=== PATIENT | female | born 1995 | race Caucasian/White ===

== ENCOUNTER 2018-04-29 22:11 | Emergency (ER) | payer OTHER, SELFPAY ==
[2018-04-29 22:17] VITALS: BP 136/87; PULSE 118; RESP 18; TEMP 37.1; O2SAT 97
--- NOTE | 2018-04-29 22:42 | ED.GENADUL ---
Disposition Clinical Impression: Left arm cellulitis Disposition: HOME Condition: Good Instructions: Cephalexin (By mouth), Cellulitis (ED) Additional Instructions: This does appear to be an infection related to your tattoo. We will start antibiotic. Please get the prescription filled in the morning before you go back to [place]. Follow up with primary care at the end of the week if it does not seem to be getting better. Return to ED if you develop high fevers, chills, increasing redness or pain. Prescriptions: Cephalexin [Keflex] 500 mg PO Q8H #20 cap Referrals: Primary Care Provider [Outside] Medical Decision Making - Medical Decision Making Patient does appear to have evidence of a cellulitis related to tattoo placement 2 days ago. She is not febrile and she does not look toxic. She otherwise feels well. Initial heart rate elevated but she is morbidly obese and probably fairly deconditioned. Heart rate came down with rest. Patient will be started on Keflex and is given her first dose here. She is returning to [place] tomorrow and is instructed to get the prescription filled here prior to leaving. Follow-up with her doctor back home if not getting better. Return to ED if worsening pain, swelling, high fever. History of Present Illness - General Chief complaint: Cellulitis Stated complaint: INFECTED TATTOO Time Seen by Provider: 04/29/18 22:41 Source: patient Mode of arrival: ambulatory Limitations: no limitations - History of Present Illness Initial comments: Patient presents with increasing pain and redness around a tattoo that a friend gave her 2 days ago. She denies any fever. She denies any systemic symptoms. She has some pain with movement of the arm but mostly just if she touches it. She presents now for evaluation concerned she has an infection. - Related Data Cephalexin [Keflex] 500 mg PO Q8H #20 cap 04/29/18 Allergies Allergy/AdvReac Type Severity Reaction Status Date / Time No Known Allergies Allergy Unverified 04/29/18 22:29 Review of Systems Constitutional: denies: chills, fever, malaise Musculoskeletal: denies: arthralgia, myalgia Skin: change in color. denies: rash Neurological: denies: weakness, numbness, paresthesias Past Medical History - Past Medical History Medical history: no medical history Surgical history: non-contributory - Social History Smoking status: current everyday smoker General Exam - General Limitations: no limitations General appearance: alert, in no apparent distress, obese - Head Head exam: Present: atraumatic, normocephalic - Extremities Exam Extremities exam: Present: normal inspection, full ROM, tenderness (Mildly tender around the tattoo in the left deltoid region.) - Neurological Exam Neurological exam: Present: alert, oriented X3, CN II-XII intact. Absent: motor sensory deficit - Skin Skin exam: Present: warm, dry, erythema (Erythema and warmth spreading out from the tattoo on the left deltoid. Mild tenderness present. No focal swelling or fluctuance.) Course Vital Signs - 24 hr 04/29/18 22:17 Temperature 98.8 F Pulse 118 H Respiratory 18 Rate Blood Pressure 136/87 Pulse Oximetry 97
[2018-04-29 22:45] VITALS: PULSE 100
[2018-04-29] MEDS: Cephalexin 500 MG CAP PO (23:00)
== END 2018-04-29 22:54 | disposition home or self-care (01) ==
PROVIDERS: Emergency Provider Emergency Medicine
DX: L03.114 Cellulitis of left upper limb (principal); L81.8 Other specified disorders of pigmentation
CPT/HCPCS: 99283